=== PATIENT | female | born 1965 | race Caucasian/White ===

== ENCOUNTER → 2020-08-04 11:45 | Outpatient (BNVA) | payer SELFPAY | PROVIDERS: Family Provider Family Medicine; PCP Family Medicine; Visit Provider Family Medicine Adult Medicine | DX: E66.9 Obesity, unspecified (principal); G89.29 Other chronic pain; I10 Essential (primary) hypertension; R07.89 Other chest pain; Z00.00 Encounter for general adult medical examination without abnormal findings | CPT/HCPCS: 80053; 80061; 83036; 84443; 85025 ==

== ENCOUNTER 2021-10-13 15:58 | Emergency (ER) | payer SELFPAY ==
[2021-10-13 16:15] VITALS: BP 165/90; PULSE 79; RESP 16; TEMP 36.7; O2SAT 98
--- NOTE | 2021-10-13 16:35 | CTR_ITS ---
PROCEDURE INFORMATION: Exam: CT Head Without Contrast Exam date and time: 10/13/2021 5:23 PM Age: 55 years old Clinical indication: Weakness, extremity; Bilateral; Additional info: Facial weakness, with some upper extremity weakness TECHNIQUE: Imaging protocol: Computed tomography of the head without contrast. Radiation optimization: All CT scans at this facility use at least one of these dose optimization techniques: automated exposure control; mA and/or kV adjustment per patient size (includes targeted exams where dose is matched to clinical indication); or iterative reconstruction. COMPARISON: No relevant prior studies available. RADIATION DOSE METRICS: Total DLP (mGy-cm): 1014.98 FINDINGS: Brain: Unremarkable. No hemorrhage. No significant white matter disease. No edema. Cerebral ventricles: No ventriculomegaly. Paranasal sinuses: Visualized sinuses are unremarkable. No fluid levels. Mastoid air cells: Unremarkable as visualized. No mastoid effusion. Bones/joints: Unremarkable. No acute fracture. Soft tissues: Unremarkable. CT/CT head wo con* [id number] IMPRESSION: No acute intracranial abnormality demonstrated.
--- NOTE | 2021-10-13 17:34 | W.ED.NEUROSD ---
HPI - Neuro Symptoms/Deficit General: Chief Complaint: Neuro Symptoms/Deficit Stated Complaint: stroke like symptoms Time Seen by Provider: 10/13/21 16:35 Source: patient Mode of arrival: ambulatory Limitations: no limitations History of Present Illness: 55-year-old female presents emergency room with left-sided lower facial droop unable to close her eye ear pain and drooling. She has had it for the last several hours woke up with it this morning. No other symptoms. No other focal neurologic deficits no weakness in hands or feet no difficulty with swallowing. Onset (ago): hour(s) Location: left face History of same: No Severity: mild Quality: weak Relieving factors: none Exacerbating factors: none Associated symptoms: Deny chest pain, cough, diaphoresis, malaise, nausea or vomiting Review of Systems Const: Denies: fever(s), chills, fatigue, malaise or diaphoresis ENMT: Denies: throat pain, ear or mastoid pain, nasal discharge or nasal congestion Card: Denies: chest pain Resp: Denies: dyspnea, productive cough or non-productive cough GI: Denies: abdominal pain, nausea, vomiting, hematemesis, coffee ground emesis, diarrhea, constipation, bloating, hematochezia or melena : Denies: flank pain, difficulty voiding, dysuria, urinary frequency or urinary urgency Skin/Breast: Denies: rash or pruritus PFSH ED PFSH: Medical History (Updated 10/21/21 @ 00:01 by ) Chronic chest wall pain Hypertension Obesity (BMI 30.0-34.9) Family History (Updated 07/29/20 @ 13:38 by Angela Saldaña LPN) Other Cancer Hypertension Social History (Updated 07/29/20 @ 13:39 by Angela Saldaña LPN) Smoking and tobacco status: never smoked Alcohol intake: never Marital status: Number of children: 5 Current occupational status: employed NIH stroke score NIHSS: Level Of Consciousness - 1a: 0 Level Of Consciousness Questions - 1b: Both Correct Level Of Consciousness Commands - 1c: Both Correct Best Gaze - 2: Normal Visual Florez - 3: No Visual Loss Facial Palsy - 4: Minor Paralysis Motor Arm Right - 5: No Drift Motor Arm Left - 5: No Drift Motor Leg Right - 6: No Drift Motor Leg Left - 6: No Drift Limb Ataxia - 7: Absent Sensory - 8: Mild To Moderate Loss Best Language - 9: No Aphasia Dysarthia - 10: Normal Extinction And Inattention - 11: 0 Score: Total Score: 2 Physical Exam Const: COMMON NORMALS: no acute distress GENERAL APPEARANCE: cooperative and comfortable ORIENTATION/CONSCIOUSNESS: Yes awake, Yes oriented to person, Yes oriented to place and Yes oriented to time HENMT: COMMON NORMALS: normocephalic, atraumatic, hearing grossly normal bilaterally, external ears normal, EAC's normal, TM's normal bilaterally and Normal nasal mucous membranes and turbinates present HEAD & SCALP: normocephalic and atraumatic NOSE: Normal nasal mucous membranes and turbinates present EXTERNAL EAR: Yes external ears normal EXTERNAL AUDITORY CANAL: EAC's normal TYMPANIC MEMBRANE: TM's normal bilaterally Eye: COMMON NORMALS: Equal, round and reactive pupils present, EOMs intact bilaterally, conjunctivae normal and no scleral icterus CONJUNCTIVA: Yes conjunctivae normal PUPIL: Yes Equal, round and reactive pupils present Neck/C-Spine: COMMON NORMALS: no JVD Resp: COMMON NORMALS: normal respiratory effort, No retractions, No use of accessory muscles and clear to auscultation bilaterally AUSCULTATION: clear to auscultation bilaterally Cardio: COMMON NORMALS: no JVD, regular rate, regular rhythm and No murmurs present (Cardio) RATE: regular rate RHYTHM: regular rhythm GI: COMMON NORMALS: Soft to palpation and No hepatosplenomegaly present AUSCULTATION: Yes normoactive bowel sounds PALPATION: Yes Soft to palpation, No Tenderness to palpation present (GI), No Guarding due to palpation present (GI) and Yes No hepatosplenomegaly present Extremity: COMMON NORMALS: normal to inspection, capillary refill normal, no clubbing, cyanosis or edema, no calf tenderness and no pedal edema Neuro: SENSORIUM/ORIENTATION: Yes oriented to person, Yes oriented to place and Yes oriented to time Skin: COMMON NORMALS: no rashes or lesions noted GENERAL SKIN EXAM: no rashes or lesions noted Course Vital Signs: Vital signs: Vital Signs Temperature 98.1 F 10/13/21 16:15 Pulse Rate 70 10/13/21 18:32 Respiratory Rate 17 10/13/21 18:32 Blood Pressure 126/74 10/13/21 18:32 Pulse Oximetry 98 10/13/21 18:32 MDM - Neuro Symptoms/Deficit Medical Decision Making Exam consistent with a Velasco's palsy. CT negative. No other focal symptoms are noted limited to the facial nerve. Will discharge home on steroid taper. Return if has further problems. Medical Records I reviewed the patient's medical records. Lab Data I reviewed the patient's lab results. Radiology Impressions Head CT 10/13/21 16:35 IMPRESSION: No acute intracranial abnormality demonstrated. Discharge Plan Discharge Patient Disposition: Home Clinical Impression: Velasco's palsy Condition: Stable Prescriptions: No Action vitamin B complex Tablet Extended Release 1 tab PO DAILY 0RF Discharge Orders: Discharge ED (Routine); Ordered 10/13/21 Ordered By: Giuseppe Solorzano Discharge Diet: Usual diet Discharge Activity: Resume usual activity Patient Instructions: Velasco Palsy (ED), Opioid Safety Activity Restrictions/Additional Instructions: Follow-up with your primary care doctor as needed Coding Level of Care Code ED Engineer Of System Development for Jimena Arita
[2021-10-13 18:05] VITALS: BP 129/71; PULSE 70; RESP 13; O2SAT 96
[2021-10-13 18:32] VITALS: BP 126/74; PULSE 70; RESP 17; O2SAT 98
== END 2021-10-13 18:34 | disposition home or self-care (01) ==
PROVIDERS: Emergency Provider Family Medicine
DX: G51.0 Bell's palsy (principal); I10 Essential (primary) hypertension
CPT/HCPCS: 70450; 99284

== ENCOUNTER 2024-02-25 13:34 | Emergency (ER) | payer SELFPAY ==
[2024-02-25 13:38] VITALS: BP 149/86; PULSE 82; RESP 18; TEMP 36.7; O2SAT 93; BMI 31.8
--- NOTE | 2024-02-25 14:53 | W.ED.ABDPA2 ---
Documented by User: Giuseppe Solorzano DO 02/26/24 05:25 HPI - Abdominal Pain General: Chief Complaint: Abdominal Pain Stated Complaint: vommiting, abd pain Time Seen by Provider: 02/25/24 14:04 History of Present Illness: 58-year-old female presents emergency room complaining of abdominal pain with vomiting she has had little streaks of blood in the vomitus. Patient is [place] she speaks very little Romanian we did use to the video manufacturers agent to get history. She states she has had symptoms for about a week and a half. She has had increased vomiting most of her discomfort is in the epigastric area she also has some in the lower pelvic area she has had some dysuria as well. No flank pain no fever sweats or chills. Associated Symptoms: Reports hematemesis (Scant bits), melena and vomiting; Denies chills, dysuria and fever(s) Related Data Home Medications Medication Instructions Recorded Confirmed vitamin B complex 1 tab PO DAILY 10/13/21 10/13/21 Previous Rx's Medication Instructions Recorded ondansetron 4 mg disintegrating 4 mg PO Q6H PRN nausea and 02/25/24 tablet vomiting #14 tabs pantoprazole 40 mg tablet,delayed 40 mg PO DAILY #60 tabs 02/25/24 release (Protonix) Allergies Allergy/AdvReac Type Severity Reaction Status Date / Time No Known Allergies Allergy Verified 02/25/24 13:41 Review of Systems Const: Denies: fever(s) or chills Card: Denies: chest pain Resp: Denies: dyspnea GI: Reports: abdominal pain, vomiting, hematemesis (Scant bits) and melena : Denies: dysuria, urinary frequency or urinary urgency Musc: Denies: neck pain or back pain Skin/Breast: Denies: rash PFSH ED PFSH: Medical History Obesity (BMI 30.0-34.9) Chronic chest wall pain Hypertension Family History Other Cancer Hypertension Social History Smoking and tobacco/nicotine status: never used tobacco/nicotine Alcohol intake: never Substance/Drug Use: never Marital status: Number of children: 5 Current occupational status: employed Physical Exam Const: GENERAL APPEARANCE: cooperative ORIENTATION/CONSCIOUSNESS: Yes awake, Yes oriented to person, Yes oriented to place and Yes oriented to time HENMT: COMMON NORMALS: normocephalic, atraumatic and hearing grossly normal bilaterally HEAD & SCALP: normocephalic and atraumatic Resp: COMMON NORMALS: normal respiratory effort, No retractions, No use of accessory muscles and clear to auscultation bilaterally AUSCULTATION: clear to auscultation bilaterally Cardio: COMMON NORMALS: regular rate, regular rhythm and No murmurs present (Cardio) RATE: regular rate RHYTHM: regular rhythm GI: COMMON NORMALS: Soft to palpation and No hepatosplenomegaly present AUSCULTATION: Yes normoactive bowel sounds PALPATION: Yes Soft to palpation, No Tenderness to palpation present (GI), No Guarding due to palpation present (GI) and Yes No hepatosplenomegaly present Extremity: COMMON NORMALS: normal to inspection, capillary refill normal, no clubbing, cyanosis or edema, no calf tenderness and no pedal edema Neuro: SENSORIUM/ORIENTATION: Yes oriented to person, Yes oriented to place and Yes oriented to time Skin: COMMON NORMALS: no rashes or lesions noted GENERAL SKIN EXAM: no rashes or lesions noted Course Vital Signs: Vital signs: Vital Signs Temperature 98.0 F 02/25/24 13:38 Pulse Rate 82 02/25/24 18:12 Respiratory Rate 18 02/25/24 13:38 Blood Pressure 144/77 02/25/24 18:12 Pulse Oximetry 95 02/25/24 18:12 Oxygen Delivery Me thod Room Air 02/25/24 17:48 MDM - Abdominal Pain Medical Decision Making Care signed out to Dr. Valerio at change of shift. See final notes for diagnosis and disposition. Patient presents here with abdominal pain and vomiting CT scan blood work here are normal will start on Protonix and Zofran we will get her follow-up with surgery she likely may need a scope in the future she is return to ER if worsening she understands agrees to plan. Lab Data 02/25/24 15:10 02/25/24 15:10 Labs/Radiology: Radiology Impressions Abdomen/Pelvis CT 02/25/24 15:50 IMPRESSION: No acute intra-abdominal or intrapelvic process. Incidental/chronic findings as above. Laboratory Results WBC 7.47 10^3/uL (3.29-11.43) 02/25/24 15:10 RBC 4.82 10^6/uL (3.85-5.65) 02/25/24 15:10 Hgb 14.20 g/dL (11.27-16.99) 02/25/24 15:10 Hct 41.4 % (36-47) 02/25/24 15:10 MCV 85.9 fl (85-98) 02/25/24 15:10 MCH 29.5 pg (27-33) 02/25/24 15:10 MCHC 34.3 g/dL (30-55) 02/25/24 15:10 RDW 12.2 % (12.1-15.1) 02/25/24 15:10 Plt Count 255 10^3/cmm (157-399) 02/25/24 15:10 MPV 9.5 fL (7.4-10.4) 02/25/24 15:10 Neut % (Auto) 59.9 % 02/25/24 15:10 Lymph % (Auto) 29.5 % 02/25/24 15:10 [place] % (Auto) 7.4 % 02/25/24 15:10 Eos % (Auto) 2.4 % 02/25/24 15:10 Baso % (Auto) 0.5 % 02/25/24 15:10 Neut # (Auto) 4.48 10^3/uL (1.8-7.7) 02/25/24 15:10 Lymph # (Auto) 2.2 10^3/uL (0.8-4.8) 02/25/24 15:10 [place] # (Auto) 0.6 10^3/uL (0.2-0.9) 02/25/24 15:10 Eos # (Auto) 0.2 10^3/uL (0.0-0.8) 02/25/24 15:10 Baso # (Auto) 0.0 10^3/uL (0.0-0.1) 02/25/24 15:10 Nucleated RBC % (auto) 0 % 02/25/24 15:10 Nucleated RBCs # 0.0 /100WBC 02/25/24 15:10 Sodium 139 mmol/L (136-145) 02/25/24 15:10 Potassium 3.1 mmol/L (3.5-5.1) L 02/25/24 15:10 Chloride 101 mmol/L (98-107) 02/25/24 15:10 Carbon Dioxide 27 mmol/L (22-29) 02/25/24 15:10 Anion Gap 14.1 (5-19) 02/25/24 15:10 BUN 10 mg/dL (8-23) 02/25/24 15:10 Creatinine 0.5 mg/dL (0.5-0.9) 02/25/24 15:10 GFR Calculation 125.9 mL/min (90-130) 02/25/24 15:10 Glucose 123 mg/dL (65-115) H 02/25/24 15:10 Calculated Osmolality 288 mOsm/kg (285-295) 02/25/24 15:10 Calcium 10.6 mg/dL (8.5-10.5) H 02/25/24 15:10 Total Bilirubin 0.9 mg/dL (0.15-1.2) 02/25/24 15:10 AST 22 U/L (0-32) 02/25/24 15:10 ALT 27 U/L (0-33) 02/25/24 15:10 Alkaline Phosphatase 85 U/L (35-105) 02/25/24 15:10 Total Protein 7.2 g/dL (6.6-8.7) 02/25/24 15:10 Albumin 4.1 g/dL (3.5-5.2) 02/25/24 15:10 Globulin 3.1 g/dL (1.3-4.6) 02/25/24 15:10 Lipase 44 U/L (13-60) 02/25/24 15:10 Discharge Plan Discharge Patient Disposition: Home Clinical Impression: Abdominal pain, Vomiting Condition: Stable Prescriptions: New pantoprazole [Protonix] 40 mg tablet,delayed release (DR/EC) 40 mg PO DAILY Qty: 60 0RF ondansetron 4 mg tablet,disintegrating 4 mg PO Q6H PRN (Reason: nausea and vomiting) Qty: 14 0RF No Action vitamin B complex Tablet Extended Release 1 tab PO DAILY Discharge Orders: Discharge ED (Routine); Ordered 02/25/24 Ordered By: Abebe Valerio Referrals: Cecil Hawkins MD [Physician] - 4-7 days Discharge Diet: Advance as tolerated Discharge Activity: Resume usual activity Patient Instructions: Acute Nausea and Vomiting (ED), Abdominal Pain (ED) Coding Level of Care Code ED Senior Oracle Pl Sql Developer for Chg Fwd Documented by User: Abebe Valerio MD 02/25/24 17:44 HPI - Abdominal Pain General: Chief Complaint: Abdominal Pain Stated Complaint: vommiting, abd pain Time Seen by Provider: 02/25/24 14:04 Related Data Home Medications Medication Instructions Recorded Confirmed vitamin B complex 1 tab PO DAILY 10/13/21 10/13/21 Previous Rx's Medication Instructions Recorded ondansetron 4 mg disintegrating 4 mg PO Q6H PRN nausea and 02/25/24 tablet vomiting #14 tabs pantoprazole 40 mg tablet,delayed 40 mg PO DAILY #60 tabs 02/25/24 release (Protonix) Allergies Allergy/AdvReac Type Severity Reaction Status Date / Time No Known Allergies Allergy Verified 02/25/24 13:41 PFSH ED PFSH: Medical History Obesity (BMI 30.0-34.9) Chronic chest wall pain Hypertension Family History Other Cancer Hypertension Social History Smoking and tobacco/nicotine status: never used tobacco/nicotine Alcohol intake: never Substance/Drug Use: never Marital status: Number of children: 5 Current occupational status: employed Course Vital Signs: Vital signs: Vital Signs Temperature 98.0 F 02/25/24 13:38 Pulse Rate 82 02/25/24 18:12 Respiratory Rate 18 02/25/24 13:38 Blood Pressure 144/77 02/25/24 18:12 Pulse Oximetry 95 02/25/24 18:12 Oxygen Delivery Me thod Room Air 02/25/24 17:48 MDM - Abdominal Pain Medical Decision Making Patient presents here with abdominal pain and vomiting CT scan blood work here are normal will start on Protonix and Zofran we will get her follow-up with surgery she likely may need a scope in the future she is return to ER if worsening she understands agrees to plan. Medical Records I reviewed the patient's medical records. Lab Data I reviewed the patient's lab results. 02/25/24 15:10 02/25/24 15:10 Labs/Radiology: Radiology Impressions Abdomen/Pelvis CT 02/25/24 15:50 IMPRESSION: No acute intra-abdominal or intrapelvic process. Incidental/chronic findings as above. Laboratory Results WBC 7.47 10^3/uL (3.29-11.43) 02/25/24 15:10 RBC 4.82 10^6/uL (3.85-5.65) 02/25/24 15:10 Hgb 14.20 g/dL (11.27-16.99) 02/25/24 15:10 Hct 41.4 % (36-47) 02/25/24 15:10 MCV 85.9 fl (85-98) 02/25/24 15:10 MCH 29.5 pg (27-33) 02/25/24 15:10 MCHC 34.3 g/dL (30-55) 02/25/24 15:10 RDW 12.2 % (12.1-15.1) 02/25/24 15:10 Plt Count 255 10^3/cmm (157-399) 02/25/24 15:10 MPV 9.5 fL (7.4-10.4) 02/25/24 15:10 Neut % (Auto) 59.9 % 02/25/24 15:10 Lymph % (Auto) 29.5 % 02/25/24 15:10 [place] % (Auto) 7.4 % 02/25/24 15:10 Eos % (Auto) 2.4 % 02/25/24 15:10 Baso % (Auto) 0.5 % 02/25/24 15:10 Neut # (Auto) 4.48 10^3/uL (1.8-7.7) 02/25/24 15:10 Lymph # (Auto) 2.2 10^3/uL (0.8-4.8) 02/25/24 15:10 [place] # (Auto) 0.6 10^3/uL (0.2-0.9) 02/25/24 15:10 Eos # (Auto) 0.2 10^3/uL (0.0-0.8) 02/25/24 15:10 Baso # (Auto) 0.0 10^3/uL (0.0-0.1) 02/25/24 15:10 Nucleated RBC % (auto) 0 % 02/25/24 15:10 Nucleated RBCs # 0.0 /100WBC 02/25/24 15:10 Sodium 139 mmol/L (136-145) 02/25/24 15:10 Potassium 3.1 mmol/L (3.5-5.1) L 02/25/24 15:10 Chloride 101 mmol/L (98-107) 02/25/24 15:10 Carbon Dioxide 27 mmol/L (22-29) 02/25/24 15:10 Anion Gap 14.1 (5-19) 02/25/24 15:10 BUN 10 mg/dL (8-23) 02/25/24 15:10 Creatinine 0.5 mg/dL (0.5-0.9) 02/25/24 15:10 GFR Calculation 125.9 mL/min (90-130) 02/25/24 15:10 Glucose 123 mg/dL (65-115) H 02/25/24 15:10 Calculated Osmolality 288 mOsm/kg (285-295) 02/25/24 15:10 Calcium 10.6 mg/dL (8.5-10.5) H 02/25/24 15:10 Total Bilirubin 0.9 mg/dL (0.15-1.2) 02/25/24 15:10 AST 22 U/L (0-32) 02/25/24 15:10 ALT 27 U/L (0-33) 02/25/24 15:10 Alkaline Phosphatase 85 U/L (35-105) 02/25/24 15:10 Total Protein 7.2 g/dL (6.6-8.7) 02/25/24 15:10 Albumin 4.1 g/dL (3.5-5.2) 02/25/24 15:10 Globulin 3.1 g/dL (1.3-4.6) 02/25/24 15:10 Lipase 44 U/L (13-60) 02/25/24 15:10 All radiology interpretation(s) finalized by discharge Discharge Plan Discharge Patient Disposition: Home Clinical Impression: Abdominal pain, Vomiting Condition: Stable Prescriptions: New pantoprazole [Protonix] 40 mg tablet,delayed release (DR/EC) 40 mg PO DAILY Qty: 60 0RF ondansetron 4 mg tablet,disintegrating 4 mg PO Q6H PRN (Reason: nausea and vomiting) Qty: 14 0RF No Action vitamin B complex Tablet Extended Release 1 tab PO DAILY Discharge Orders: Discharge ED (Routine); Ordered 02/25/24 Ordered By: Abebe Valerio Referrals: Cecil Hawkins MD [Physician] - 4-7 days Discharge Diet: Advance as tolerated Discharge Activity: Resume usual activity Patient Instructions: Acute Nausea and Vomiting (ED), Abdominal Pain (ED) Coding Level of Care Code ED Senior Oracle Pl Sql Developer for Jimena Arita
[2024-02-25 15:15] LABS: Basophils % 0.5 %; Eosinophils # 0.2 10^3/uL (0.0-0.8); Eosinophils % 2.4 %; Hematocrit 41.4 % (36-47); Lymphocytes # 2.2 10^3/uL (0.8-4.8); Lymphocytes % 29.5 %; Mean Corpuscular HGB Conc 34.3 g/dL (30-55); Mean Corpuscular Hemoglobin 29.5 pg (27-33); Mean Corpuscular Volume 85.9 fl (85-98); Mean Platelet Volume 9.5 fL (7.4-10.4); Monocytes # 0.6 10^3/uL (0.2-0.9); Monocytes % 7.4 %; Neutrophils # 4.48 10^3/uL (1.8-7.7); Neutrophils % 59.9 %; Nucleated Red Blood Cells % 0 %; Platelet Count 255 10^3/cmm (157-399); Red Blood Count 4.82 10^6/uL (3.85-5.65); Red Cell Distribution Width 12.2 % (12.1-15.1); White Blood Count 7.47 10^3/uL (3.29-11.43)
[2024-02-25 15:32] LABS: Alanine Aminotransferase 27 U/L (0-33); Albumin Level 4.1 g/dL (3.5-5.2); Alkaline Phosphatase 85 U/L (35-105); Anion Gap 14.1 (5-19); Aspartate Amino Transferase 22 U/L (0-32); Blood Urea Nitrogen 10 mg/dL (8-23); Calcium 10.6 mg/dL (8.5-10.5); Carbon Dioxide 27 mmol/L (22-29); Chloride 101 mmol/L (98-107); Creatinine Clr Calc Pharmacy 116.4122; Globulin 3.1 g/dL (1.3-4.6); Glomerular Filtration Rate 125.9 mL/min (90-130); Glucose 123 mg/dL (65-115); Lipase 44 U/L (13-60); Osmolality Calculated 288 mOsm/kg (285-295); Potassium 3.1 mmol/L (3.5-5.1); Sodium 139 mmol/L (136-145); Total Bilirubin 0.9 mg/dL (0.15-1.2); Total Protein 7.2 g/dL (6.6-8.7)
--- NOTE | 2024-02-25 15:50 | CTR_ITS ---
PROCEDURE INFORMATION: Exam: CT Abdomen And Pelvis With Contrast Exam date and time: 02/25/2024 4:45 PM Age: 58 years old Clinical indication: Abdominal pain; Localized; Lower; Additional info: Abd pain TECHNIQUE: Imaging protocol: Computed tomography of the abdomen and pelvis with contrast. Radiation optimization: All CT scans at this facility use at least one of these dose optimization techniques: automated exposure control; mA and/or kV adjustment per patient size (includes targeted exams where dose is matched to clinical indication); or iterative reconstruction. Contrast material: OMNIPAQUE 350; Contrast volume: 100 ml; Contrast route: INTRAVENOUS (IV); COMPARISON: No relevant prior studies available. RADIATION DOSE METRICS: Total DLP (mGy-cm): 810.9 FINDINGS: Lungs: 4 mm right lung base nodule. Liver: Hepatic steatosis. Otherwise the liver is unremarkable. Gallbladder and biliary ducts: Normal. No calcified stones. No ductal dilation. Pancreas: Normal. No ductal dilation. Spleen: Normal. No splenomegaly. Adrenal glands: Normal. No mass. Kidneys and ureters: Normal. No hydronephrosis. Stomach and bowel: There is a duodenal diverticulum. No bowel obstruction. Appendix: No evidence of appendicitis. Intraperitoneal space: Unremarkable. No free air. No significant fluid collection. Vasculature: Unremarkable. No abdominal aortic aneurysm. Lymph nodes: Unremarkable. No enlarged lymph nodes. Urinary bladder: Unremarkable as visualized. Reproductive: Heterogenous appearance of the uterus may relate to fibroids. Bones/joints: Unremarkable. No acute fracture. Soft tissues: Unremarkable. CT/CT abdomen pelvis w con* [id number] IMPRESSION: No acute intra-abdominal or intrapelvic process. Incidental/chronic findings as above.
[2024-02-25 16:11] VITALS: BP 173/107; PULSE 69; O2SAT 97
[2024-02-25] MEDS: iohexol 350 mg/mL 500 mL Btl (per mL) IV (16:46)
[2024-02-25 17:48] VITALS: BP 144/77; PULSE 82; O2SAT 95
[2024-02-25 18:12] VITALS: BP 144/77; PULSE 82; O2SAT 95
--- NOTE | 2024-02-26 07:51 | DCPLANNER ---
messaged gen surg for er f/u
== END 2024-02-25 18:13 | disposition home or self-care (01) ==
PROVIDERS: Family Medicine; Emergency Provider Emergency Medicine
DX: R10.9 Unspecified abdominal pain (principal); R11.10 Vomiting, unspecified; I10 Essential (primary) hypertension
CPT/HCPCS: 74177; 80053; 83690; 85025; 99285